=== PATIENT | male | born 1965 | race African-American/Black ===

== ENCOUNTER → 2017-03-05 | Outpatient (CLI) | payer MEDICAID ==
--- NOTE | 2017-03-05 18:03 | RADIOLOGY REPORT (SQ) ---
EXAM DESCRIPTION: SHOULDER RIGHT 2 OR MORE VIEWS COMPLETED DATE/TIME: 03/05/2017 5:08 pm REASON FOR STUDY: PRIMARY OSTEOARTHRITIS, RIGHT SHOULDER M19.011 PRIMARY OSTEOARTHRITIS, RIGHT SHOU LDER COMPARISON: None. NUMBER OF VIEWS: Three views. TECHNIQUE: Internal rotation, external rotation, and Y view images acquired of the right shoulder. LIMITATIONS: None. FINDINGS: MINERALIZATION: Normal. BONES: No acute fracture or dislocation. No worrisome bone lesions. JOINTS: No dislocation. VISUALIZED LUNGS AND RIBS: No pneumothorax. No rib fracture. SOFT TISSUES: No radiopaque foreign body. OTHER: No other significant finding. IMPRESSION: NEGATIVE STUDY OF THE RIGHT SHOULDER. NO RADIOGRAPHIC EVIDENCE OF ACUTE INJURY. TECHNICAL DOCUMENTATION: JOB ID: [id number] [employer]- All Rights Reserved
== END ==
LOC: OD 16:53
PROVIDERS: ATTEND Internal Medicine
DX: M19.011 Primary osteoarthritis, right shoulder (principal)

== ENCOUNTER → 2017-03-15 | Outpatient (CLI) | payer MEDICARE, MEDICAID ==
--- NOTE | 2017-03-15 14:26 | RADIOLOGY REPORT (SQ) ---
EXAM DESCRIPTION: HAND RIGHT 3 VIEWS COMPLETED DATE/TIME: 03/15/2017 1:55 pm REASON FOR STUDY: ANKYLOSIS, RIGHT HAND M24.641 ANKYLOSIS, RIGHT HAND COMPARISON: 03/05/2016 EXAM PARAMETERS: NUMBER OF VIEWS: Three views. TECHNIQUE: AP, lateral and oblique radiographic images acquired of the right hand. LIMITATIONS: None. FINDINGS: MINERALIZATION: Normal. BONES: No acute fracture or dislocation. No worrisome bone lesions. JOINTS: Degenerative joint changes seen in the 1st metacarpal -phalangeal joint SOFT TISSUES: There is soft tissue swelling around the 3rd proximal interphalangeal joint. OTHER: No other significant finding. IMPRESSION: Degenerative joint disease. Soft tissue swelling with no acute osseous abnormality. TECHNICAL DOCUMENTATION: JOB ID: [id number] [employer]- All Rights Reserved
== END ==
LOC: OD 13:46
PROVIDERS: ATTEND Internal Medicine
DX: M24.641 Ankylosis, right hand (principal)

== ENCOUNTER 2018-03-05 20:18 | Emergency (ER) | payer MEDICAID, MEDICARE ==
--- NOTE | 2018-03-05 21:06 | RADIOLOGY REPORT (SQ) ---
EXAM DESCRIPTION: FOOT RIGHT COMPLETE COMPLETED DATE/TIME: 03/05/2018 8:47 pm REASON FOR STUDY: pain s/p fall. R knee R foot COMPARISON: None. NUMBER OF VIEWS: Three views. TECHNIQUE: AP, lateral and oblique radiographic images acquired of the right foot. LIMITATIONS: None. FINDINGS: MINERALIZATION: Normal. BONES: No acute fracture or dislocation. No worrisome bone lesions. JOINTS: No effusions. SOFT TISSUES: No soft tissue swelling. No foreign body. OTHER: No other significant finding. IMPRESSION: NEGATIVE STUDY OF THE RIGHT FOOT. NO RADIOGRAPHIC EVIDENCE OF ACUTE INJURY. TECHNICAL DOCUMENTATION: JOB ID: [id number] [employer]- All Rights Reserved Reading location - IP/workstation name: [email or web address]
--- NOTE | 2018-03-05 21:08 | RADIOLOGY REPORT (SQ) ---
EXAM DESCRIPTION: KNEE RIGHT 4 VIEWS COMPLETED DATE/TIME: 03/05/2018 8:47 pm REASON FOR STUDY: pain s/p fall. R knee R foot COMPARISON: [id number] NUMBER OF VIEWS: Four views. TECHNIQUE: AP, lateral, and both oblique radiographic images acquired of the right knee. LIMITATIONS: None. FINDINGS: MINERALIZATION: Normal. BONES: No acute fracture or dislocation. No worrisome bone lesions. JOINT: Small joint effusion. SOFT TISSUES: No soft tissue swelling. No radio-opaque foreign body. OTHER: No other significant finding. IMPRESSION: Small joint effusion. No fracture. TECHNICAL DOCUMENTATION: JOB ID: [id number]- All Rights Reserved Reading location - IP/workstation name: [email or web address]
[2018-03-05 21:29] VITALS: BP 129/80
[2018-03-05] MEDS ORDERED: HYDROCODONE/ACETAMINOPHEN 5-325 MG (6 TAB/ER DISP) PO PRN (21:32)
[2018-03-05] MEDS ORDERED: IBUPROFEN 600 MG TABLET PO ONE (21:33)
--- NOTE | 2018-03-05 21:40 | ER Document Report ---
HPI - HPI Pain Level: 4 Notes: Patient is a 52-year-old male who presents with chief complaint of right knee pain and right ankle pain after he states his knee gave out today. Patient has had history of issues with this knee in the past, used to get steroid injections. - CONSTITUTIONAL Constitutional: DENIES: Fever, Chills - MUSCULOSKELETAL Musculoskeletal: REPORTS: Extremity pain - right knee/ankle Past Medical History - Social History Smoking Status: Unknown if Ever Smoked Family History: DM, Hypertension, Malignancy, Thyroid Disfunction Patient has suicidal ideation: No Patient has homicidal ideation: No - Past Medical History Cardiac Medical History: Reports: Hx Congestive Heart Failure, Hx Hypertension - meds since age 18 Denies: Hx Coronary Artery Disease, Hx Heart Attack Pulmonary Medical History: Reports: Hx Pneumonia Denies: Hx Asthma, Hx Bronchitis, Hx COPD Neurological Medical History: Denies: Hx Cerebrovascular Accident, Hx Seizures Renal/ Medical History: Reports: Hx Renal Insufficiency. Denies: Hx Peritoneal Dialysis Musculoskeletal Medical History: Reports Hx Arthritis - rt knee, Reports Hx Musculoskeletal Deformity, Reports Hx Musculoskeletal Trauma Traumatic Medical History: Reports: Hx Fractures - Immunizations Immunizations up to date: Yes Hx Diphtheria, Pertussis, Tetanus Vaccination: Yes - 07/09/2010 Vertical Provider Document - CONSTITUTIONAL Notes: PHYSICAL EXAMINATION: GENERAL: Well-appearing, well-nourished and in no acute distress. HEAD: Atraumatic, normocephalic. EYES: Pupils equal round extraocular movements intact, conjunctiva are normal. ENT: Nares patent NECK: Normal range of motion LUNGS: No respiratory distress Musculoskeletal: Normal range of motion, pain with range of motion to NEUROLOGICAL: Normal speech, normal gait. PSYCH: Normal mood, normal affect. SKIN: Warm, Dry, normal turgor, no rashes or lesions noted. - INFECTION CONTROL TRAVEL OUTSIDE OF THE [place] IN LAST 30 DAYS: No Course - Re-evaluation Re-evalutation: Negative x-ray of the right foot. Right knee x-ray reveals a small joint effusion. Discussed options with patient, patient would like to follow-up with [facility] as he states he really has a preestablished relationship with them. Patient will be discharged in stable condition. - Vital Signs Vital signs: Temp Pulse Resp BP Pulse Ox 98.7 F 82 18 129/80 H 95 03/05/18 21:13 03/05/18 21:13 03/05/18 21:13 03/05/18 21:13 03/05/18 21:13 Discharge - Discharge Clinical Impression: Ankle sprain, Knee injury Condition: Stable Disposition: HOME, SELF-CARE Additional Instructions: Knee Effusion You have a fluid collection in the knee joint, called an effusion. This fluid build up can occur from irritation of the synovial membrane lining the knee joint or from a more serious injury to the knee. Irritation of the membrane can occur from excessive, repetitive knee activitiy, like kneeling or squatting for extended periods or even just excessive walking, jogging, or skiing. Effusions also can occur with infections in the joint and with some arthritic conditions, especially gout. Fluid collections in these situations are usually yellow in color and either clear or cloudy in appearance. Significant injury to the knee can result in fluid collection which is partly or entirely blood and this condition is known as a hemarthrosis of the knee joint. If the fluid collection is not too large and/or painful, it can be managed conservatively with rest, ice packs, and anti-inflammatory and pain medications as needed. If the fluid collection is large and very painful, the knee joint can be drained (aspirated) by a relatively minor procedure of inserting a needle in the joint and removing some or all of the fluid present. If your knee was aspirated, you should rest it as much as possible for a few days, keep a pressure dressing around the knee and apply ice packs for at least 48 - 72 hours. If there are signs of developing infection such as heat and redness of the knee, fever, etc. you should return immediately for a recheck. GUILLERMINA WRAP: A compression dressing (guillermina wrap) has been placed. This helps hold the area still. It limits swelling and internal bleeding. The wrap should be comfortably snug -- not tight. You should feel a sense of pressure, but not severe pain under the wrap. Unless the physician tells you otherwise, you can adjust the wrap for comfort. If the wrap causes symptoms suggesting it's too tight -- uncomfortable pressure, swelling or discoloration beyond the wrap, numbness, or severe pain - - you must loosen the wrap. If these symptoms don't resolve promptly, return for re-evaluation. SPRAINED ANKLE: Your sprained ankle results from stretching or tearing of the ligaments which support the ankle. This usually results from twisting the foot inward and under. The ligaments will require time and protection in order to heal properly. Many ankle sprains are quite disabling, and should be taken seriously. The usual treatment for an ankle sprain is cold packs; protection with tape , splints, or wraps; elevation; and staying off the ankle for at least a day. As the ankle improves, you can walk IF it's not painful to bear weight. Sports are best postponed until healing is complete. More serious sprains usually require strengthening exercises after early healing. Your physician has assessed the seriousness of the ligament injury to your ankle. However, the treatment may change, depending on how your ankle progresses. If further exams were recommended, it is important that you follow through. Call the doctor if your foot becomes numb, painful, or severely swollen. SPRAINED KNEE: Your sprained knee results from a stretching or tearing of the ligaments which support the joint. This often results from a bending stress -- such as a twisting fall while skiing or a "clip" while playing football. The ligaments will require time and protection to heal adequately. A knee sprain can be quite serious, and should be taken seriously. The usual treatment is splinting of the knee, ice packs, and elevation. You shouldn't walk on the leg if weightbearing is painful. Unless the sprain is obviously a minor one, follow-up exam is very important. The degree of ligament damage often cannot be fully assessed at first due to muscle spasm and pain. Your treatment plan may change based on the physician's findings during your follow-up examination. Call the doctor at once if there is severe swelling, increasing pain, numbness, or other alarming symptoms. SUSPECTED INTERNAL KNEE INJURY: The examiner of your injured knee suspects an internal injury to the cartilage or internal ligaments. This must be further investigated by an mission assessment specialist. The knee should be protected, ice packed, and elevated while awaiting your follow-up exam by the orthopedist. If there is severe swelling, severe pain, or any new symptoms while awaiting your exam, you should call the orthopedist. (If he/she is unavailable, call us or return for re-examination.) KNEE IMMOBILIZING SPLINT: The knee immobilizing splint will protect the injury while healing begins. This type of splint does not allow the knee to bend at all. No running or sports will be possible. If the splint allows painfree walking, it's giving adequate protection. If there is still significant pain, crutches may be needed as well. Don't do anything that hurts. Adjusted the splint, if necessary. The stiffeners on the sides are attached with Velcro, so they can be easily moved to adjust for thigh and calf size. If you need help with these adjustments, come back. You will lose muscle strength in the thigh while using this splint. The doctor will advise you if it's safe to do isometric knee exercises while you use it. USE OF CRUTCHES: The doctor has recommended that you not bear weight at this time. You will need to use crutches. Adjust the crutches so the tops come to about two inches under the armpit while you are standing upright. Use your hands -- not your armpits -- to support your weight. To get into a chair, support yourself with one crutch on the injured side. Hold the chair with the other hand, then lower yourself while putting all your weight on the good leg. Going up stairs is `good leg up, step up, then bring up crutches and bad leg.' Down stairs is `bad leg and crutches down, then bring good leg down.' If you develop numbness or swelling in an arm or hand, you are using the crutches incorrectly. Return if you are having any problems with the crutches. ICE & ELEVATION: Apply ice packs frequently against the painful area. Many different schedules are recommended, such as "20 minutes on, 20 minutes off" or "one hour ice, two hours rest." If you need to work, you may need to go longer between ice treatments. You should plan to have the area ice packed AT LEAST one- fourth of the time. The ice should be applied over the wrap, tape, or splint, or over a layer of cloth -- not directly against the skin. Some ice bags have a built-in cloth and can be put directly on the skin. Your injured part should be elevated as much as possible over the next 48 hours. Try to keep the injury above the level of the heart. Avoid use of the injured area. Elevation and rest will decrease the swelling. USE OF [id number] IBUPROFEN: Ibuprofen (Advil, Nuprin, Medipren, Motrin IB) is a medication for fever and pain control. In addition, it has anti- inflammatory effects which may be beneficial, especially in the treatment of injuries. It's best to take ibuprofen with food. Persons with ulcer disease or allergy to aspirin should notify their physician of this before taking ibuprofen. Ibuprofen can be given every four to six hours, for a total of four doses daily. Age Pain or fever dose Antiinflammatory dose 15-adult 400 mg (2 tab) 600 mg (3 tab) ORAL NARCOTIC MEDICATION: You have been given a prescription for pain control. This medication is a narcotic. It's best taken with food, as nausea can result if taken on an empty stomach. Don't operate machinery or drive within six hours of taking this medication. Do not combine this medicine with alcohol, or with any medication which can cause sedation (such as cold tablets or sleeping pills) unless you get permission from the physician. Narcotics tend to cause constipation. If possible, drink plenty of fluids and eat a diet high in fiber and fruits. Please be aware that prescription narcotics also have the potential for abuse. People become addicted to these medications because of the general sense of wellbeing that they induce. This feeling along with a significant reduction in tension, anxiety, and aggression provides a stimulating seductive quality to these drugs. Once your pain is under control, we encourage you to discard your unused narcotics. FOLLOW-UP CARE: If you have been referred to a physician for follow-up care, call the physician s office for an appointment as you were instructed or within the next two days. If you experience worsening or a significant change in your symptoms, notify the physician immediately or return to the Emergency Department at any time for re-evaluation. As discussed, please follow-up with [facility]. Call them tomorrow to schedule an appointment. Please take ibuprofen 600 mg every 6 hours, use the narcotic pain medication as needed for severe pain. Ice and elevate as outlined above. Return to the emergency department for any worsening pain or further concerns. Prescriptions: Hydrocodone Bit/Acetaminophen [Hydrocodon-Acetaminophen 5-325] 1 each PO Q4H # 12 tablet Referrals: NINOSKA CASTILLO MD [Primary Care Provider] - Follow up as needed
== END 2018-03-05 22:14 | disposition home or self-care (01) ==
LOC: ER 20:18
DX: S93.409A Sprain of unspecified ligament of unspecified ankle, initial encounter (principal); S89.90XA Unspecified injury of unspecified lower leg, initial encounter; M25.561 Pain in right knee; M25.461 Effusion, right knee; M25.571 Pain in right ankle and joints of right foot; W19.XXXA Unspecified fall, initial encounter; I10 Essential (primary) hypertension
CPT/HCPCS: 99283; 73630; 73564; L1830; A9270 ×2

== ENCOUNTER 2018-09-02 09:33 | Emergency (ER) | payer MEDICARE ==
--- NOTE | 2018-09-02 10:56 | RADIOLOGY REPORT (SQ) ---
EXAM DESCRIPTION: HAND RIGHT 3 VIEWS; WRIST RIGHT 3 VIEWS COMPLETED DATE/TIME: 09/02/2018 10:41 am REASON FOR STUDY: hand, wrist pain COMPARISON: None. EXAM PARAMETERS: NUMBER OF VIEWS: Six views. TECHNIQUE: AP, lateral and oblique radiographic images acquired of the right wrist and right hand. LIMITATIONS: None. FINDINGS: MINERALIZATION: Normal. BONES: No acute fracture or dislocation. No worrisome bone lesions. JOINTS: No effusions. SOFT TISSUES: No soft tissue swelling. No foreign body. OTHER: No other significant finding. IMPRESSION: NO RADIOGRAPHIC EVIDENCE OF ACUTE INJURY. TECHNICAL DOCUMENTATION: JOB ID: [id number] [employer]- All Rights Reserved Reading location - IP/workstation name: [email or web address]
--- NOTE | 2018-09-02 10:56 | RADIOLOGY REPORT (SQ) ---
EXAM DESCRIPTION: HAND RIGHT 3 VIEWS; WRIST RIGHT 3 VIEWS COMPLETED DATE/TIME: 09/02/2018 10:41 am REASON FOR STUDY: hand, wrist pain COMPARISON: None. EXAM PARAMETERS: NUMBER OF VIEWS: Six views. TECHNIQUE: AP, lateral and oblique radiographic images acquired of the right wrist and right hand. LIMITATIONS: None. FINDINGS: MINERALIZATION: Normal. BONES: No acute fracture or dislocation. No worrisome bone lesions. JOINTS: No effusions. SOFT TISSUES: No soft tissue swelling. No foreign body. OTHER: No other significant finding. IMPRESSION: NO RADIOGRAPHIC EVIDENCE OF ACUTE INJURY. TECHNICAL DOCUMENTATION: JOB ID: [id number] [employer]- All Rights Reserved Reading location - IP/workstation name: [email or web address]
--- NOTE | 2018-09-02 11:28 | ER Document Report ---
ED Hand/Wrist Injury - General Chief Complaint: Wrist Pain Stated Complaint: WRIST PAIN Time Seen by Provider: 09/02/18 10:43 Primary Care Provider: NINOSKA CASTILLO MD [Primary Care Provider] - Follow up as needed Information source: Patient Notes: 52-year-old male presented to ED for complaint of right wrist pain since Sunday. He states that he drank a sixpack of beer on Sunday and then woke up Sunday morning with a hot painful right wrist and hand. Patient states he has a history of arthritis and gout. He denies any injuries any falls. Patient is alert oriented respirations regular and unlabored. He does have full range of motion but with pain to the right hand and wrist. He is full pulse with capillary refills less than 3 seconds and is able to feel all fingers. Patient states that he took Tylenol and Motrin this morning about 9:00. He states he has been taking Percocet 4 times a day for the pain. Patient states his told him that it was gout and he needed to not be drinking the beer. TRAVEL OUTSIDE OF THE [place] IN LAST 30 DAYS: No - HPI Injury to: Hand, Wrist Onset: Other - Sunday Timing: Still present Quality of pain: Achy, Throbbing Severity: Severe Pain Level: 5 Context: Swelling - Related Data Allergies/Adverse Reactions: losartan Allergy (Verified 09/02/18 10:20) Past Medical History - General Information source: Patient - Social History Smoking Status: Current Every Day Smoker Cigarette use (# per day): Yes - 4-5 cigarettes a day Chew tobacco use (# tins/day): No Smoking Education Provided: Yes - Frequency of alcohol use: Drug Abuse: None Lives with: Family Family History: DM, Hypertension, Malignancy, Thyroid Disfunction Patient has suicidal ideation: No Patient has homicidal ideation: No - Past Medical History Cardiac Medical History: Reports: Hx Congestive Heart Failure, Hx Hypertension - meds since age 18 Pulmonary Medical History: Reports: Hx Pneumonia EENT Medical History: Reports: None Neurological Medical History: Reports: None Endocrine Medical History: Reports: None Renal/ Medical History: Reports: Hx Renal Insufficiency Malignancy Medical History: Reports None GI Medical History: Reports: None Musculoskeletal Medical History: Reports Hx Arthritis - rt knee, Reports Hx Gout, Reports Hx Musculoskeletal Deformity, Reports Hx Musculoskeletal Trauma Skin Medical History: Reports None Psychiatric Medical History: Reports: None Traumatic Medical History: Reports: Hx Fractures - Fingers Infectious Medical History: Reports: None Past Surgical History: Reports: Hx Pacemaker - pacemaker/defib placed, Other - Lung biopsies - Immunizations Immunizations up to date: Yes Hx Diphtheria, Pertussis, Tetanus Vaccination: Yes - 07/09/2010 Review of Systems - Review of Systems Constitutional: No symptoms reported EENT: No symptoms reported Cardiovascular: No symptoms reported Respiratory: No symptoms reported Gastrointestinal: No symptoms reported Genitourinary: No symptoms reported Male Genitourinary: No symptoms reported Musculoskeletal: Joint pain - Right hand and wrist, Joint swelling Skin: No symptoms reported Hematologic/Lymphatic: No symptoms reported Neurological/Psychological: No symptoms reported -: Yes All other systems reviewed and negative Physical Exam - Vital signs Vitals: Temp Pulse Resp BP Pulse Ox 98.4 F 77 16 136/81 H 96 09/02/18 09:38 09/02/18 09:38 09/02/18 09:38 09/02/18 09:38 09/02/18 09:38 Interpretation: Normal - General General appearance: Appears well, Alert - HEENT Head: Normocephalic, Atraumatic Eyes: Normal Pupils: PERRL - Respiratory Respiratory status: No respiratory distress Chest status: Nontender Breath sounds: Normal Chest palpation: Normal - Cardiovascular Rhythm: Regular Heart sounds: Normal auscultation Murmur: No - Abdominal Inspection: Normal Distension: No distension Bowel sounds: Normal Tenderness: Nontender Organomegaly: No organomegaly - Back Back: Normal, Nontender - Extremities General upper extremity: Normal ROM, Normal temperature General lower extremity: Normal inspection, Nontender, Normal color, Normal ROM, Normal temperature, Normal weight bearing. No: Silas's sign Wrist: Tender, Other - Warm mildly red. No: Limited ROM - Pain with range of motion Hand: Tender, No evidence of human bite, No evidence of FB, Swelling, Other - Mildly red - Neurological Neuro grossly intact: Yes Cognition: Normal Orientation: AAOx4 Len Coma Scale Eye Opening: Spontaneous [place] Coma Scale Verbal: Oriented Len Coma Scale Motor: Obeys Commands [place] Coma Scale Total: 15 Speech: Normal Motor strength normal: LUE, RUE, LLE, RLE Sensory: Normal - Psychological Associated symptoms: Normal affect, Normal mood - Skin Skin Temperature: Warm Skin Moisture: Dry Skin Color: Normal Course - Re-evaluation Re-evalutation: 09/02/18 21:[address] Chavez concerning exam history and the fact that he drink the beer right before this started. She stated that I should treat the him with prednisone and have him follow-up with his primary doctor tomorrow. Patient was needed with prednisone in the emergency room discharged home with option for prednisone and instructed to follow-up with primary care tomorrow. Patient verbalized understanding and agreement with treatment plan before discharge. - Vital Signs Vital signs: Temp Pulse Resp BP Pulse Ox 97.6 F 70 18 129/88 H 97 09/02/18 11:45 09/02/18 11:45 09/02/18 11:45 09/02/18 11:45 09/02/18 11:45 Discharge - Discharge Clinical Impression: Pain in right hand Condition: Stable Disposition: HOME, SELF-CARE Additional Instructions: Gout You have been diagnosed as having gout. Gout is a problem caused by an excess of uric acid, a natural chemical found in the body. The cause of this disease is unknown. Gout arthritis occurs when crystals of uric acid form in the joints. The big toe is the most common joint involved, but any joint can become affected. Persons with gout may also form uric acid kidney stones, resulting in flank pain and blood in the urine. Nodules of uric acid may form under the skin. The first step of treatment is to decrease the inflammation in the joint with antiinflammatory medication. Medication to lower the uric acid level in the blood may then be prescribed. This medication should be taken regularly, as any sudden change in dosage may provoke an attack of gout. Some foods, such as red meat, can provoke an attack in some gout sufferers. Call the doctor if new symptoms arise, or if you do not improve. Gout Diet Changing your diet can decrease the uric acid in your blood. High levels of uric acid cause gouty arthritis and uric acid kidney stones. If you have gout, you should avoid meats that are high in purine. Meat products to avoid include liver, kidneys, and brains. In general, poultry is better than red meats. Seaf oods to avoid include anchovies, sardines, baptiste, mackerel, and scallops. In addition to limiting purine-rich foods, people with gout should limit protein intake to 10-15% of total calories. Carbohydrate intake should be around 50% of total daily calories. Limit fat intake to 30% of total daily calories. Cholesterol intake should be less than 300 mg/day. Maintain or achieve a healthy body weight. Weight loss should be gradual. Rapid weight loss can actually increase uric acid levels temporarily. Alcohol, especially beer, should be avoided. Get plenty of fluids. This dilutes urinary uric acid, and helps prevent uric acid kidney stones. Drink eight to twelve cups of water daily. STEROID MEDICATION: You have been given a medicine of the cortisone/steroid class. This medication is used to control inflammation or allergy. It is usually only given for a short period of time, until the acute process subsides. There are usually no side effects from short-term use of cortisone-like medications. Some persons feel an increased sense of well-being and are not sleepy at bedtime. Long-term use of cortisone medications is best avoided, unless required for a severe condition. If your condition does not remit, or relapses after the course of corticosteroid medication, you should consult your physician. FOLLOW-UP CARE: If you have been referred to a physician for follow-up care, call the physicians office for an appointment as you were instructed or within the next two days. If you experience worsening or a significant change in your symptoms, notify the physician immediately or return to the Emergency Department at any time for re-evaluation. Prescriptions: Prednisone [Deltasone 20 mg Tablet] 3 tab PO DAILY 5 Days tablet Forms: Elevated Blood Pressure, Smoking Cessation Education Referrals: NINOSKA CASTILLO MD [Primary Care Provider] - Follow up as needed
[2018-09-02] MEDS ORDERED: PREDNISONE 20 MG TABLET PO ONE (11:30)
[2018-09-02 11:48] VITALS: BP 129/88
== END 2018-09-02 11:48 | disposition home or self-care (01) ==
LOC: ER 09:33
DX: M79.641 Pain in right hand (principal); M25.531 Pain in right wrist; F17.210 Nicotine dependence, cigarettes, uncomplicated; I50.9 Heart failure, unspecified; I11.0 Hypertensive heart disease with heart failure; Z79.899 Other long term (current) drug therapy
CPT/HCPCS: 99283; 73130; 73110; A9270; J7512

== ENCOUNTER → 2020-07-05 | Outpatient (CLI) | payer MEDICARE ==
--- NOTE | 2020-07-05 11:01 | RADIOLOGY REPORT (SQ) ---
EXAM DESCRIPTION: SHOULDER RIGHT 2 OR MORE VIEWS IMAGES COMPLETED DATE/TIME: 07/05/2020 10:10 am REASON FOR STUDY: (M75.121)COMPLETE ROTATR-CUFF TEAR/RUPTR OF R SHOULDER, NOT TRAUMA M75.121 COMPLE TE ROTATR-CUFF TEAR/RUPTR OF R SHOULDER, NOT T COMPARISON: None. NUMBER OF VIEWS: Three views. TECHNIQUE: Internal rotation, external rotation, and Y view images acquired of the right shoulder. LIMITATIONS: None. FINDINGS: MINERALIZATION: Normal. BONES: No acute fracture. No suspicious osseous lesions. Mild acromioclavicular and glenohumeral os teophytosis. JOINTS: No dislocation. Borderline decreased subacromial space measuring 8 mm. VISUALIZED LUNGS AND RIBS: No pneumothorax. No rib fracture. SOFT TISSUES: No radiopaque foreign body. OTHER: No other significant finding. IMPRESSION: No evidence of acute bony abnormality of the right shoulder. Mild osteophytosis with borderline decreased subacromial space may suggest some element of rotator cu ff loss. TECHNICAL DOCUMENTATION: JOB ID: [id number] [employer]- All Rights Reserved Reading location - IP/workstation name: [email or web address]
== END ==
LOC: RAD 09:42
PROVIDERS: ATTEND Internal Medicine
DX: M75.121 Complete rotator cuff tear or rupture of right shoulder, not specified as traumatic (principal)

== ENCOUNTER 2020-07-08 02:33 | Emergency (ER) | payer MEDICARE ==
[2020-07-08 03:47] LABS: ABSOLUTE EOSINOPHILS # (AUTO) 0.1 10^3/uL (0.0-0.6); ABSOLUTE LYMPHOCYTES (AUTO) 1.7 10^3/uL (0.5-4.7); ABSOLUTE MONOCYTES (AUTO) 0.9 10^3/uL (0.1-1.4); ABSOLUTE NEUT (AUTO) 4.4 10^3/uL (1.7-8.2); BASOPHILS % (AUTO) 0.3 % (0-2); EOSINOPHILS % (AUTO) 1.3 % (0-6); HEMATOCRIT 36.4 % (37.9-51.0); HEMOGLOBIN 12.4 g/dL (13.5-17.0); LYMPHOCYTES % (AUTO) 23.5 % (13-45); MEAN CORPUSCULAR HEMOGLOBIN 29.6 pg (27.0-33.4); MEAN CORPUSCULAR HGB CONC 34.1 g/dL (32.0-36.0); MEAN CORPUSCULAR VOLUME 87 fl (80-97); MONOCYTES % (AUTO) 12.7 % (3-13); PLATELET COUNT 191 10^3/uL (150-450); RED BLOOD COUNT 4.19 10^6/uL (4.35-5.55); RED CELL DISTRIBUTION WIDTH 16.4 % (11.5-14.0); SEGMENTED NEUTROPHILS % (AUTO) 62.2 % (42-78); TOTAL CELLS COUNTED % (AUTO) 100 %; WHITE BLOOD COUNT 7.1 10^3/uL (4.0-10.5)
[2020-07-08 03:59] LABS: ALBUMIN 3.7 g/dL (3.5-5.0); ALKALINE PHOSPHATASE 69 U/L (38-126); ANION GAP 9 (5-19); ASPARTATE AMINO TRANSFERASE 25 U/L (17-59); BILIRUBIN,DIRECT 0.1 mg/dL (0.0-0.4); BILIRUBIN,TOTAL 1.3 mg/dL (0.2-1.3); BLOOD UREA NITROGEN 26 mg/dL (7-20); CALCIUM 9.2 mg/dL (8.4-10.2); CARBON DIOXIDE 27 mmol/L (22-30); CHLORIDE 106 mmol/L (98-107); CREATINE KINASE 159 U/L (55-170); GLUCOSE 115 mg/dL (75-110); POTASSIUM 3.3 mmol/L (3.6-5.0); TOTAL PROTEIN 6.8 g/dL (6.3-8.2)
[2020-07-08] MEDS ORDERED: IPRATROPIUM/ALBUTEROL 0.5-2.5 MG/3 ML AMPUL NEB ONE (04:05)
--- NOTE | 2020-07-08 04:05 | RADIOLOGY REPORT (SQ) ---
EXAM DESCRIPTION: Site: CHEST SINGLE VIEW RP: XR CHEST 1 VIEW CLINICAL HISTORY: 54 years Male; diff breathing; COMPARISON: [id number] FINDINGS: Lungs: Lungs are clear, with no focal infiltrate, pneumothorax, or pleural effusion. Mediastinum: Mediastinum is within normal limits for this positioning. Pacemaker is again noted. Bones: Left supraclavicular metallic foreign bodies are unchanged. No acute bone findings. IMPRESSION: 1. No acute pulmonary findings. 2. Pacemaker
--- NOTE | 2020-07-08 04:05 | ER Document Report ---
ED Respiratory Problem - General Chief Complaint: Breathing Difficulty Stated Complaint: SHORTNESS OF BREATH Time Seen by Provider: 07/08/20 03:08 Primary Care Provider: NINOSAK CASTILLO MD [Primary Care Provider] - Follow up in 3-5 days TRAVEL OUTSIDE OF THE [place] IN LAST 30 DAYS: No - HPI Notes: Patient is a 54-year-old male with a past medical history of CHF and TIA who presents with shortness of breath. Patient states that for about 1 week he has had increased dyspnea. He states it is worse when he lies down flat. He mentions that his tested positive for Covid in May. He was not tested. He denies any cough. No headaches or lightheadedness. He feels that his abdomen is bloated. He denies any lower leg swelling. He has not had any fevers. Takes Bumex daily. He states he used to be on Bumex twice a day but his nailer operator told him to stop in December. - Related Data Allergies/Adverse Reactions: losartan Allergy (Verified 09/02/18 10:20) Home Medications: BP med. entresto. bisaprolol. spirolactone. allopurinol. allergy med. cholesterol pill. fluid pill Past Medical History - General Information source: Patient - Social History Smoking Status: Current Every Day Smoker Chew tobacco use (# tins/day): No Frequency of alcohol use: Occasional Drug Abuse: Marijuana Family History: DM, Hypertension, Malignancy, Thyroid Disfunction - Past Medical History Cardiac Medical History: Reports: Hx Congestive Heart Failure, Hx Hypertension - meds since age 18 Denies: Hx Coronary Artery Disease, Hx Heart Attack Pulmonary Medical History: Reports: Hx Pneumonia Denies: Hx Asthma, Hx Bronchitis, Hx COPD Neurological Medical History: Denies: Hx Cerebrovascular Accident, Hx Seizures Renal/ Medical History: Reports: Hx Renal Insufficiency. Denies: Hx Per itoneal Dialysis Musculoskeletal Medical History: Reports Hx Arthritis - rt knee, Reports Hx Gout, Reports Hx Musculoskeletal Deformity, Reports Hx Musculoskeletal Trauma Traumatic Medical History: Reports: Hx Fractures - Fingers Past Surgical History: Reports: Hx Cardiac Surgery - pacemaker/defib placed, Hx Pacemaker - pacemaker/defib placed, Other - Lung biopsies - Immunizations Immunizations up to date: Yes Hx Diphtheria, Pertussis, Tetanus Vaccination: Yes - 07/09/2010 Review of Systems - Review of Systems Notes: CONSTITUTIONAL: No fever, fatigue or weight loss. SKIN: No rash. CARDIOVASCULAR: No chest pain or edema. RESPIRATORY: No cough. Positive for shortness of breath. GASTROINTESTINAL: No abdominal pain, nausea, vomiting, bloody stools or diarrhea. MUSCULOSKELETAL: No joint pain or swelling. NEUROLOGIC: No seizures. No headache, focal weakness or sensory changes. HEMATOLOGIC: No unusual bruising or bleeding. PSYCHIATRIC: No depression or anxiety. Physical Exam - Vital signs Vitals: Temp Pulse Resp BP Pulse Ox 97.9 F 96 24 H 132/95 H 93 07/08/20 02:35 07/08/20 02:35 07/08/20 02:35 07/08/20 02:35 07/08/20 02:35 - General General appearance: Appears well In distress: None Notes: VITAL SIGNS: Within normal limits. GENERAL: No acute distress, non-toxic appearance. HEAD: Normal with no signs of head trauma. EYES: Conjunctiva normal, no discharge. EARS: Hearing grossly intact. NECK: Normal range of motion, no tenderness, supple, no lymphadenopathy, No adenopathy, no JVD. CHEST: Clear breath sounds bilaterally. No wheezes, rales, or rhonchi. CARDIAC: Regular rate and rhythm. S1 and S2, without murmurs, gallops, or rubs. VASCULAR: Trace pedal edema edema. ABDOMEN: Normal and soft with no tenderness MUSCULOSKELETAL: Good range of motion of all major joints. Extremities without clubbing, cyanosis or edema. NEUROLOGICAL: Alert and oriented x 3. No focal sensory or strength deficits. Speech normal. Follows commands appropriately. PSYCHIATRIC: Normal Affect, judgement and mood. SKIN: Normal appearance with no rashes or lesions. Course - Re-evaluation Re-evalutation: 07/08/20 07:36 Patient was initially placed on oxygen, I took this off of him. He has been sat ting in the high 90s on room air. Patient's work-up shows an elevated BNP. However, it has been higher before. His symptoms do seem consistent with CHF as he has orthopnea. Patient was given Lasix. He had a adequate urine output. On reassessment, he is resting comfortably. He is on room air. Patient is in no acute distress. I did have him ambulate around the ED and his pulse ox remained 100%. Patient states that he will talk to his nailer operator as he used to be on Bumex twice a day. I told him to hold the Bumex today since he is already got Lasix this morning. He can restart it tomorrow. He can take an extra dose of Bumex tomorrow but I also warned him about not becoming too fluid depleted. He states he will call his nailer operator. Patient was tested for Covid. He was told to self isolate until he is called with a negative result. Patient is very agreeable to this. He was given strict return precautions 07/08/20 07:37 - Vital Signs Vital signs: Temp Pulse Resp BP Pulse Ox 98.0 F 96 18 118/80 95 07/08/20 07:18 07/08/20 02:35 07/08/20 07:18 07/08/20 07:01 07/08/20 07:18 - Laboratory Results Result Diagrams: 07/08/20 03:21 07/08/20 03:21 Laboratory Results Interpreted: 07/08/20 07/08/20 07/08/20 03:21 03:21 03:21 RBC 4.19 L Hgb 12.4 L Hct 36.4 L RDW 16.4 H Potassium 3.3 L BUN 26 H Creatinine 1.98 H Est GFR ( Amer) 43 L Est GFR (MDRD) Non-Af 36 L Glucose 115 H NT-Pro-B Natriuret Pep 2470 H Critical Laboratory Results Reviewed: No Critical Results - Radiology Results Critical Radiology Results Reviewed: No Critical Results - EKG Interpretation by Me EKG shows normal: Sinus rhythm Rate: Normal Rhythm: NSR Heart block present: 1st Degree When compared to previous EKG there are: No significant change Additional EKG results interpreted by me: 07/08/20 07:30 Sinus rhythm at a rate of 86. PVC present. QTc 474. First-degree AV block. No significant change from previous EKG. Discharge - Discharge Clinical Impression: CHF exacerbation Qualifiers: Heart failure type: unspecified Qualified Code(s): I50.9 - Heart failure, unspecified Condition: Stable Disposition: HOME, SELF-CARE Instructions: COVID-19 Guidance for Persons Under Investigation, Congestive Heart Failure ([facility]) Additional Instructions: Your work-up today is reassuring. You were given Lasix this morning. Do not take your Bumex today. You may restart it tomorrow. Please call your nailer operator to discuss dosing of the Bumex as you were previously on a higher dose. You were also tested for COVID-19. You must self isolate until you are called with a negative result. Please return to the ER for any shortness of breath or worsening symptoms. Referrals: NINOSKA CASTILLO MD [Primary Care Provider] - Follow up in 3-5 days
[2020-07-08 04:11] LABS: CREATINE KINASE MB 0.63 ng/mL (<4.55); TROPONIN I 0.02 ng/mL
[2020-07-08] MEDS ORDERED: POTASSIUM CHLORIDE 10 MEQ TABLET.ER PO ONE (04:55)
[2020-07-08] MEDS ORDERED: FUROSEMIDE INJ/PF 40 MG/4 ML SDV IV ONE (04:55)
[2020-07-08 07:06] VITALS: BP 118/80
--- NOTE | 2020-07-08 11:47 | EKG REPORT ---
SEVERITY:- ABNORMAL ECG - SINUS RHYTHM VENTRICULAR PREMATURE COMPLEX FIRST DEGREE AV BLOCK NONSPECIFIC INTRAVENTRICULAR CONDUCTION DELAY : Confirmed by: Devonte Guevara MD 08-Jul-2020 11:45:59
== END 2020-07-08 07:45 | disposition home or self-care (01) ==
LOC: ER 02:33
DX: I11.0 Hypertensive heart disease with heart failure (principal); I50.9 Heart failure, unspecified; I44.0 Atrioventricular block, first degree; I49.3 Ventricular premature depolarization; R06.02 Shortness of breath; F17.200 Nicotine dependence, unspecified, uncomplicated; Z87.01 Personal history of pneumonia (recurrent); Z79.899 Other long term (current) drug therapy; Z95.810 Presence of automatic (implantable) cardiac defibrillator; Z88.8 Allergy status to other drugs, medicaments and biological substances; Z20.828 Contact with and (suspected) exposure to other viral communicable diseases
CPT/HCPCS: 93005; 94640; 99285; 96374; 36415; 82553; 82550; 85025; 80053; 84484; 83880; 71045; 93010; U0003; J1940; A9270; C9803; 87635